=== PATIENT | female | born 1990 | race American Indian/Alaskan Native ===

== ENCOUNTER 2019-01-11 09:30 | Emergency (ER) | payer OTHER ==
[2019-01-11 09:36] VITALS: BP 119/76
[2019-01-11] MEDS ORDERED: IBUPROFEN PO ONE (10:08)
[2019-01-11] MEDS ORDERED: ROCEPHIN IM ONE (10:08)
[2019-01-11] MEDS ORDERED: XYLOCAINE 1% MPF 5 mL INFILTRATI ONE (10:08)
--- NOTE | 2019-01-11 10:09 | Emergency Department Report ---
Abscess Boil HPI - HPI Chief Complaint: Skin/Abscess/Foreign Body Stated Complaint: (L) BREAST PAIN Time Seen by Provider: 01/11/19 10:07 Duration: Today Location: Other Severity: Mild History: Yes Pain, No Fever, No Purulent Drainage, No Numbness, No Foreign Body, No Previous History, No Insect Bite HPI: She is a 28-year-old comes in with left breast pain. She is found to have red cellulitic area of the left breast she states that she's not sure if this was an insect bite or she scratched herself. She's had no fever. But she states that the area is painful. She has no major medical problems and is on no home medications daily. No [id number] pain relief has helped. Nothing seems to be making the pain worse. Patient has never had a mammogram. She has never had children. Home Medications: Previous Rx's Medication Instructions Recorded Last Taken Type Naproxen [Naprosyn] 500 mg PO BID PRN #20 tablet 01/11/19 Unknown Rx cephALEXin [Keflex] 500 mg PO Q12HR #20 cap 01/11/19 Unknown Rx traMADol [Ultram] 50 mg PO Q6HR PRN #10 tablet 01/11/19 Unknown Rx ED Review of Systems ROS: Stated complaint: (L) BREAST PAIN Other details as noted in HPI Comment: All other systems reviewed and negative ED Past Medical Hx - Past Medical History Previous Medical History?: No - Surgical History Hx Cholecystectomy: Yes - Family History Family history: no significant - Social History Smoking Status: Current Every Day Smoker Substance Use Type: Marijuana - Medications Home Medications: Home Medications Medication Instructions Recorded Confirmed Last Taken Type Naproxen [Naprosyn] 500 mg PO BID PRN #20 tablet 01/11/19 Unknown Rx cephALEXin [Keflex] 500 mg PO Q12HR #20 cap 01/11/19 Unknown Rx traMADol [Ultram] 50 mg PO Q6HR PRN #10 tablet 01/11/19 Unknown Rx ED Abscess Boil Physical Exam - Exam General: Vital signs noted. No distress. Alert and acting appropriately. Exam: Yes Surrounding Cellulites/Erythema, Yes Normal Neurologic Exam, Yes Normal Circulation, No Heart Murmur Exam: - Head. Head exam: Present: atraumatic, normocephalic. - Eye. Eye exam: Present: normal appearance, EOMI. Absent: nystagmus. - ENT. ENT exam: Present: normal exam, normal orophraynx, mucous membranes moist, normal external ear exam. - Neck. Neck exam: Present: normal inspection, full ROM. Absent: tenderness, meningismus. - Respiratory. Respiratory exam: Present: normal lung sounds bilaterally. Absent: respiratory distress, wheezes, rales, rhonchi, stridor, chest wall tenderness, accessory muscle use, decreased breath sounds, prolonged expiratory. - Cardiovascular. Cardiovascular Exam: Present: regular rate, normal rhythm, normal heart sounds. Absent: bradycardia, tachycardia, irregular rhythm, systolic murmur, diastolic murmur, rubs, gallop. - GI/Abdominal. GI/Abdominal exam: Present: soft. Absent: distended, tenderness, guarding, rebound, rigid, pulsatile mass. - Rectal. Rectal exam: Present: deferred. - Extremities Exam. Extremities exam: Present: normal inspection, full ROM, other (2+ pulses noted in the bilateral upper extremities. 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 Absent: calf tenderness. - Back Exam. Back exam: Present: normal inspection, full ROM. Absent: tenderness, CVA tenderness (R), CVA tenderness (L), paraspinal tenderness, vertebral tenderness. - Neurological Exam. Neurological exam: Present: alert, oriented X3, normal gait, other (Extraocular movements intact. Tongue midline. No facial droop. Facial sensation intact to light touch in the V1, V2, V3 distribution bilaterally. 5 and 5 strength in 4 extremities.. Sensation is intact to light touch in 4 extremities.). Absent: motor sensory deficit. - Psychiatric. Psychiatric exam: normal affect and mood. - Skin. Skin exam: Present: warm, dry, intact, normal color. left breast red and warm. no abscess. no nipple retraction or drainage. ED Course Vital Signs 01/11/19 09:35 Temperature 97.8 F Pulse Rate 64 Respiratory 16 Rate Blood Pressure 119/76 O2 Sat by Pulse 100 Oximetry - Reevaluation(s) Reevaluation #1: 01/11/19 NO NEED FOR I/D Critical care attestation.: If time is entered above; I have spent that time in minutes in the direct care of this critically ill patient, excluding procedure time. ED Medical Decision Making - Medical Decision Making Vital Signs 01/11/19 09:35 Temperature 97.8 F Pulse Rate 64 Respiratory 16 Rate Blood Pressure 119/76 O2 Sat by Pulse 100 Oximetry NON TOXIC NO FEVER MILD CELLULITIC INFECTION WILL TREAT WITH ANTIBIOTICS AND DC HOME WITH OBGYN FOLLOW UP I'VE EXPLAINED TO PT SHE WILL NEED AN EVENTUAL MAMOGRAM. SHE VERBALIZES UNDERSTANDING VSS ON DC - Differential Diagnosis ro abscess ED Disposition Clinical Impression: Cellulitis Disposition: DC-01 TO HOME OR SELFCARE Is pt being admited?: No Does the pt Need Aspirin: No Condition: Stable Instructions: Breast Self-exam (ED), Mammogram (ED), Cellulitis (ED) Additional Instructions: DIET TOLERATED MEDS ORDERED TODAY IN ER FOLLOW INSTRUCTIONS ON THE BOTTLE FOLLOW UP PCP WITHIN 48 HOURS TO ENSURE YOU ARE GETTING BETTER ACTIVITY TOLERATED MOTRIN OR TYLENOL FOR PAIN OR FEVER RETURN TO THE ER FOR WORSENING SYMPTOMS NOT RELIEVED BY YOUR MEDICATIONS. Prescriptions: cephALEXin [Keflex] 500 mg PO Q12HR #20 cap Naproxen [Naprosyn] 500 mg PO BID PRN #20 tablet PRN Reason: Pain traMADol [Ultram] 50 mg PO Q6HR PRN #10 tablet PRN Reason: Pain Referrals: ZEYAD CABALLERO MD [Staff Physician] - 3-5 Days Forms: Work/School Release Form(ED) Time of Disposition: 10:13
== END 2019-01-11 10:39 | disposition home or self-care (01) ==
LOC: ED 09:30
DX: N61.0 Mastitis without abscess (principal); F17.200 Nicotine dependence, unspecified, uncomplicated; F12.10 Cannabis abuse, uncomplicated; Z90.49 Acquired absence of other specified parts of digestive tract
CPT/HCPCS: 96372; 99282; J0696; 82962

== ENCOUNTER 2022-04-01 11:04 | Emergency (ER) | payer BC, OTHER ==
--- NOTE | 2022-04-01 14:06 | Emergency Department Report ---
ED Back Pain/Injury HPI - General Chief Complaint: Back Pain/Injury Stated Complaint: BACK PAIN Time Seen by Provider: 04/01/22 13:40 Source: patient Limitations: No Limitations - History of Present Illness Initial Comments: 32 YO COMES TO ER WITH LBP RAD TO RLE. SHE LIFTS A LOT AT WORK. HAS BEEN OCCURRING OFF AND ON FOR 2 WEEKS. NO FEVER. NO CHILLS. NO CP. NO SOB. NO ABD PAIN. NO N/V/D. NO DYSURIA. NO VAG DC PAIN DOES NOT WAKE HER AT NIGHT AMBULATORY TO ER MD Complaint: back pain -: Gradual, week(s) Similar Symptoms Previously: Yes Radiation: none Severity: mild Severity scale (0 -10): 3 Quality: aching Consistency: intermittent Improves With: immobilization Worsens With: movement Context: while lifting, turning/twisting, bending Associated Symptoms: denies other symptoms - Related Data Previous Rx's Medication Instructions Recorded Last Taken Type Cyclobenzaprine [Flexeril] 10 mg PO TID PRN #10 tablet 04/01/22 Unknown Rx Ibuprofen [Motrin] 800 mg PO Q8HR PRN #30 tablet 04/01/22 Unknown Rx Allergies Allergy/AdvReac Type Severity Reaction Status Date / Time No Known Allergies Allergy Unverified 04/01/22 13:40 ED Review of Systems ROS: Stated complaint: BACK PAIN Other details as noted in HPI Comment: All other systems reviewed and negative ED Past Medical Hx - Past Medical History Previous Medical History?: No - Surgical History Hx Cholecystectomy: Yes - Family History Family history: no significant - Social History Smoking Status: Current Every Day Smoker Substance Use Type: Marijuana - Medications Home Medications: Home Medications Medication Instructions Recorded Confirmed Last Taken Type Cyclobenzaprine [Flexeril] 10 mg PO TID PRN #10 tablet 04/01/22 Unknown Rx Ibuprofen [Motrin] 800 mg PO Q8HR PRN #30 tablet 04/01/22 Unknown Rx ED Physical Exam - General Limitations: No Limitations General appearance: alert, in no apparent distress - Head Head exam: Present: atraumatic, normocephalic - Eye Eye exam: Present: normal appearance - ENT ENT exam: Present: mucous membranes moist - Neck Neck exam: Present: normal inspection - Respiratory Respiratory exam: Present: normal lung sounds bilaterally. Absent: respiratory distress - Cardiovascular Cardiovascular Exam: Present: regular rate, normal rhythm. Absent: systolic murmur, diastolic murmur, rubs, gallop - GI/Abdominal GI/Abdominal exam: Present: soft, normal bowel sounds - Extremities Exam Extremities exam: Present: normal inspection - Back Exam Back exam: Present: normal inspection - Neurological Exam Neurological exam: Present: alert, oriented X3 - Psychiatric Psychiatric exam: Present: normal affect, normal mood - Skin Skin exam: Present: warm, dry, intact, normal color. 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 REQUESTING WORK NOTE FOR 2 DAYS. - Differential Diagnosis LBP RO UTI Critical care attestation.: If time is entered above; I have spent that time in minutes in the direct care of this critically ill patient, excluding procedure time. ED Disposition Clinical Impression: Lumbar strain Qualifiers: Encounter type: initial encounter Qualified Code(s): S39.012A - Strain of muscle, fascia and tendon of lower back, initial encounter Sciatica Qualifiers: Laterality: right Qualified Code(s): M54.31 - Sciatica, right side Disposition: 01 HOME / SELF CARE / HOMELESS Is pt being admited?: No Does the pt Need Aspirin: No Condition: Stable Instructions: Lumbar Sprain, Radicular Pain Additional Instructions: MEDS ORDERED TODAY FOLLOW UP WITH PCP AND OR ORTHO WE DISCUSSED REFERRALS BELOW GOOD BODY MECHANICS WARM BATHS AND COMPRESSES WILL HELP Prescriptions: Cyclobenzaprine [Flexeril] 10 mg PO TID PRN #10 tablet PRN Reason: Muscle Spasm Ibuprofen [Motrin] 800 mg PO Q8HR PRN #30 tablet PRN Reason: Pain, Moderate (4-6) Referrals: TAWNY COSTA MD [Staff Physician] - 3-5 Days BECKIE HAN MD [Staff Physician] - 3-5 Days Forms: Work/School Release Form(ED) Time of Disposition: 14:16
[2022-04-01 14:13] LABS: Mucus,Urine FEW /HPF
[2022-04-01 14:20] LABS: Color,Urine Yellow (Yellow)
[2022-04-01 15:52] VITALS: BP 108/65
== END 2022-04-01 15:51 | disposition home or self-care (01) ==
LOC: ED 11:04
DX: S39.012A Strain of muscle, fascia and tendon of lower back, initial encounter (principal); M54.31 Sciatica, right side; F17.200 Nicotine dependence, unspecified, uncomplicated; F12.90 Cannabis use, unspecified, uncomplicated; X58.XXXA Exposure to other specified factors, initial encounter; Y93.9 Activity, unspecified; Y92.89 Other specified places as the place of occurrence of the external cause; Y99.8 Other external cause status
CPT/HCPCS: 81001; 99283

== ENCOUNTER 2022-05-03 10:53 | Emergency (ER) | payer BC ==
[2022-05-03 11:29] VITALS: BP 122/64
--- NOTE | 2022-05-03 11:46 | Emergency Department Report ---
ED Lower Extremity HPI - General Chief Complaint: Pain General Stated Complaint: POSSIBLE FROSTBITE Time Seen by Provider: 05/03/22 11:30 Source: patient Mode of arrival: Ambulatory Limitations: No Limitations - History of Present Illness Initial Comments: This is a 32-year-old female nontoxic, well nourished in appearance, no acute signs of distress presents to the ED with acute on chronic intermittent left foot numbness and tingling sensation times several months. Patient stated that she works in a cold environment and since then believes she has frostbite. Patient denies any injuries or trauma. Patient denies any numbness, tingling, fever, chills, nausea, vomiting, chest pain, shortness of breath, headache, stiff neck. Patient denies any joint swelling or joint redness. Patient denies decreased range of motion or abnormal gait. Patient denies any allergies. -: month(s) Injury: Toes: Left Severity scale (0 -10): 0 Associated Symptoms: ambulatory. denies: snap/pop sensation, swelling, numbness, tingling, able to partially bear weight - Related Data Previous Rx's Medication Instructions Recorded Last Taken Type Cyclobenzaprine [Flexeril] 10 mg PO TID PRN #10 tablet 04/01/22 Unknown Rx Ibuprofen [Motrin] 800 mg PO Q8HR PRN #30 tablet 04/01/22 Unknown Rx Allergies Allergy/AdvReac Type Severity Reaction Status Date / Time No Known Allergies Allergy Verified 05/03/22 11:32 ED Review of Systems ROS: Stated complaint: POSSIBLE FROSTBITE Other details as noted in HPI Comment: All other systems reviewed and negative Constitutional: denies: chills, fever Eyes: denies: eye pain, eye discharge, vision change ENT: denies: ear pain, throat pain Respiratory: denies: cough, shortness of breath, wheezing Cardiovascular: denies: chest pain, palpitations Endocrine: no symptoms reported Gastrointestinal: denies: abdominal pain, nausea, diarrhea Genitourinary: denies: urgency, dysuria, discharge Musculoskeletal: denies: back pain, joint swelling, arthralgia Skin: denies: rash, lesions Neurological: denies: headache, weakness, paresthesias Psychiatric: denies: anxiety, depression Hematological/Lymphatic: denies: easy bleeding, easy bruising ED Past Medical Hx - Past Medical History Previous Medical History?: No - Surgical History Hx Cholecystectomy: Yes - Social History Smoking Status: Unknown if ever smoked Substance Use Type: None - Medications Home Medications: Home Medications Medication Instructions Recorded Confirmed Last Taken Type Cyclobenzaprine [Flexeril] 10 mg PO TID PRN #10 tablet 04/01/22 Unknown Rx Ibuprofen [Motrin] 800 mg PO Q8HR PRN #30 tablet 04/01/22 Unknown Rx ED Physical Exam - General Limitations: No Limitations General appearance: alert, in no apparent distress - Head Head exam: Present: atraumatic, normocephalic - Eye Eye exam: Present: normal appearance - Neck Neck exam: Present: full ROM - Respiratory Respiratory exam: Absent: respiratory distress - Cardiovascular Cardiovascular Exam: Present: regular rate - Extremities Exam Extremities exam: Present: normal inspection, full ROM, normal capillary refill. Absent: tenderness, pedal edema, joint swelling, calf tenderness - Expanded Lower Extremity Exam Left Hip exam: Present: normal inspection, full ROM. Absent: tenderness, swelling Upper Leg exam: Present: normal inspection, full ROM. Absent: tenderness, swelling Knee exam: Present: normal inspection, full ROM. Absent: tenderness, swelling Lower Leg exam: Present: normal inspection, full ROM. Absent: tenderness, swelling, abrasion, laceration, ecchymosis, deformity, crepidus, dislocation, erythema, palpable cord, Deyvi's sign Ankle exam: Present: normal inspection, full ROM. Absent: tenderness, swelling, abrasion, laceration, ecchymosis, deformity, crepidus, dislocation, erythema, anterior draw sign Foot/Toe exam: Present: normal inspection, full ROM. Absent: swelling, abrasion, laceration, ecchymosis, deformity, crepidus, dislocation, erythema, amputation, puncture wound, foreign body, calcaneal tenderness, tenderness at base of 5th metatarsal, nail avulsion, subungual hematoma Neuro vascular tendon exam: Present: no vascular compromise Gait: Positive: observed and normal - Back Exam Back exam: Present: full ROM - Neurological Exam Neurological exam: Present: alert, oriented X3, normal gait - Psychiatric Psychiatric exam: Present: normal affect, normal mood - Skin Skin exam: Present: warm, dry, intact, normal color. Absent: rash ED Course Vital Signs 05/03/22 11:28 Temperature 98 F Pulse Rate 66 Respiratory 16 Rate Blood Pressure 122/64 [Left] O2 Sat by Pulse 99 Oximetry - Reevaluation(s) Reevaluation #1: 05/03/22 11:45 Patient is speaking in full sentences with no signs of distress noted. ED Lower Extremity MDM - Medical Decision Making This is a 32-year-old female that presents with numbness and tingling foot. Patient is stable and was examined by me. I referred patient to an orthopedic doctor for further evaluation for possible MRI. Physical exam is unremarkable. Neurovascular intact. Patient does have normal gait with no tenderness and no joint swelling. No ecchymosis. no joint redness or swelling. Not warm to touch. No signs of cellulites present. At time of discharge, the patient does not seem toxic or ill in appearance. No acute signs of distress noted. Patient agrees to discharge treatment plan of care. No further questions noted by the patient. Critical care attestation.: If time is entered above; I have spent that time in minutes in the direct care of this critically ill patient, excluding procedure time. ED Disposition Clinical Impression: Numbness and tingling of foot Disposition: 01 HOME / SELF CARE / HOMELESS Is pt being admited?: No Does the pt Need Aspirin: No Condition: Stable Additional Instructions: Follow-up with a primary care and orthopedic doctor in 3-5 days or if symptoms worsen and continue return to emergency room as soon as possible. Referrals: PRIMARY CAREMD [Referring] - 3-5 Days TAWNY COSTA MD [Staff Physician] - 3-5 Days BECKIE HAN MD [Staff Physician] - 3-5 Days Forms: Work/School Release Form(ED) Time of Disposition: 11:46
== END 2022-05-03 12:39 | disposition home or self-care (01) ==
LOC: ED 10:53
DX: R20.0 Anesthesia of skin (principal); R20.2 Paresthesia of skin
CPT/HCPCS: 99282